=== PATIENT | male | born 1990 | race Caucasian/White ===

== ENCOUNTER 2018-11-16 03:18 | Emergency (ER) | payer SELFPAY ==
--- NOTE | 2018-11-16 03:42 | XRAY Report ---
Reason: chest pain Procedure Date: 11/16/2018 Accession Number: [id number] / [id number] Procedure: XR - Chest 1 View X-Ray CPT Code: 95605 FULL RESULT: EXAM: CHEST RADIOGRAPHY EXAM DATE: 11/16/2018 03:34 AM. CLINICAL HISTORY: Chest pain. COMPARISON: None. TECHNIQUE: 1 view. FINDINGS: Lungs/Pleura: No alveolar consolidation or pleural effusion seen. No pneumothorax. Mediastinum: Within exam limitations, the cardiomediastinal contour is normal. Other: None. IMPRESSION: 1. No acute abnormality seen in the chest. RADIA
--- NOTE | 2018-11-16 04:03 | ED Physician Documentation ---
PD HPI CHEST PAIN - Stated complaint Stated Complaint: TIGHT CHEST - Chief complaint Chief Complaint: Cardiac - History obtained from History obtained from: Patient, Family - History of Present Illness Timing - onset: Yesterday Timing - onset during: Rest Timing - duration: Days (2) Timing - details: Gradual onset, Still present, Waxing and waning Quality: Pressure, Tightness, Sharp Location: Substernal, Left chest Radiation: Back Worsened by: Inspiration, Palpation Associated symptoms: Shortness of air, Nausea Similar symptoms before: Has not had sx before Recently seen: Emergency Dept - Additional information Additional information: 28-year-old vegan male has developed substernal chest tightness and along with this abdominal pain. He reports that he has abdominal pain daily and along with this loose stool with blood every other day. He was seen in the emergency department at [facility] on the morning of 11/15/2018 and diagnosed with Crohn's disease. He was given Solu-Medrol 125 mg and he was instructed to start prednisone the following day. The patient had improvement in his pain for about 8 hours and he subsequently began to have worsening of his pain and is now brought back to the hospital by his mother with severe sharp abdominal pain and chest tightness. Patient reports that he has had daily abdominal pain for years and his bowel habits have been similar as well with diarrhea and blood in the stool every other day. He reports that he was diagnosed with Crohn's disease and has not h ad any diagnostic imaging or procedures done. Review of Systems Constitutional: reports: Chills. denies: Fever Eyes: denies: Decreased vision Ears: denies: Ear pain Nose: denies: Rhinorrhea / runny nose, Congestion Throat: denies: Sore throat Cardiac: reports: Chest pain / pressure. denies: Palpitations, Pedal edema, Calf pain Respiratory: reports: Dyspnea. denies: Cough, Wheezing GI: reports: Abdominal Pain, Nausea, Vomiting, Diarrhea, Bloody / black stool : denies: Dysuria, Frequency Skin: denies: Rash Musculoskeletal: denies: Neck pain, Back pain, Extremity pain Neurologic: denies: Generalized weakness, Focal weakness, Numbness PD PAST MEDICAL HISTORY - Past Medical History Past Medical History: Yes GI: Crohn's disease - Past Surgical History Past Surgical History: Yes - Allergies Allergies/Adverse Reactions: Allergies Allergy/AdvReac Type Severity Reaction Status Date / Time No Known Drug Allergies Allergy Verified 11/16/18 03:24 - Social History Does the pt smoke?: No Smoking Status: Never smoker Does the pt drink ETOH?: Yes Does the pt have substance abuse?: Yes Substance Use and Type: Marijuana - Immunizations Immunizations are current?: Yes - POLST Patient has POLST: No PD ED PE NORMAL - Vitals Vital signs reviewed: Yes (bradycardia) - General General: Alert and oriented X 3, Well developed/nourished, Other (patient with stoker mechanic tone and flat affect consistent with pain. ) - HEENT HEENT: Atraumatic, PERRL, EOMI - Neck Neck: Supple, no meningeal sign, No bony TTP - Cardiac Cardiac: No murmur, Other (bradicardic) - Respiratory Respiratory: No respiratory distress, Clear bilaterally - Abdomen Abdomen: Soft, Other (moderate central abdominal tenderness to palpation. ) - Back Back: No CVA TTP, No spinal TTP - Derm Derm: Normal color, Warm and dry, No rash - Extremities Extremities: No deformity, No edema - Neuro Neuro: Alert and oriented X 3, tip puncher 2-12 intact, No motor deficit, No sensory deficit, Normal speech Eye Opening: Spontaneous Motor: Obeys Commands Verbal: Oriented GCS Score: 15 - Psych Psych: Other (mood is painful affect is flat) Results - Vitals Vitals: Vital Signs - 24 hr 11/16/18 11/16/18 03:21 06:14 Temperature 36.9 C 37.0 C Heart Rate 52 L 53 L Respiratory 15 17 Rate Blood Pressure 121/77 116/83 H O2 Saturation 98 97 Oxygen O2 Source Room air - EKG (time done) 0325 Rate: Rate (enter#) (44) Rhythm: Sinus bradycardia Ischemia: Other (ST elevation consistent with henrietta-carditis. ) Compare to prior EKG: Old EKG unavailable Computer interpretation: Agree with computer - Labs Labs: Laboratory Tests 11/16/18 11/16/18 11/16/18 03:55 03:55 03:55 WBC 18.2 H RBC 4.29 L Hgb 14.0 Hct 41.7 L MCV 97.0 H MCH 32.6 H MCHC 33.6 RDW 11.8 L Plt Count 270 MPV 7.8 Neut # (Auto) 15.5 H Lymph # (Auto) 1.3 L Stevens # (Auto) 1.3 H Eos # (Auto) 0.0 Baso # (Auto) 0.0 Absolute Nucleated RBC 0.00 Nucleated RBC % 0.0 ESR Sodium 139 Potassium 3.9 Chloride 101 Carbon Dioxide 27 Anion Gap 11.0 BUN 8 Creatinine 0.6 Estimated GFR (MDRD) 163 Glucose 117 H Calcium 9.7 Total Bilirubin 0.6 AST 20 ALT 11 Alkaline Phosphatase 86 Troponin I < 0.04 C-Reactive Protein Total Protein 7.0 Albumin 4.2 Globulin 2.8 Albumin/Globulin Ratio 1.5 Lipase 29 11/16/18 11/16/18 03:55 03:55 WBC RBC Hgb Hct MCV MCH MCHC RDW Plt Count MPV Neut # (Auto) Lymph # (Auto) Stevens # (Auto) Eos # (Auto) Baso # (Auto) Absolute Nucleated RBC Nucleated RBC % ESR 1 Sodium Potassium Chloride Carbon Dioxide Anion Gap BUN Creatinine Estimated GFR (MDRD) Glucose Calcium Total Bilirubin AST ALT Alkaline Phosphatase Troponin I C-Reactive Protein < 1.0 Total Protein Albumin Globulin Albumin/Globulin Ratio Lipase - Rads (name of study) CT ab/pel with Radiology: Prelim report reviewed (Impression: 1. Appendix is not well seen. 2. possible wall thickening in the stomach. This may simply represent nondistention. Peptic disease also possible. 3 Trace amount of free fluid in the pelvis. This is nonspecific.), Discussed with rads (Case discussed with Dr. Florian Jacob film review: there does appear to be an end on view of the loop of bowel with thickened wall in the sagittal series. This may be consistent with Crohn's disease. The remainder of the patient's small intestine is nearly invisible on CT scan and is he has no fat.), EMP read indepedently, See rad repo rt chest Radiology: Prelim report reviewed (Impression: 1. No acute abnormality seen in the chest.) Procedures - Bedside sono Bedside sono by EMP: With use of bedside ultrasound the heart is imaged and there is no evidence of pericardial effusion. PD MEDICAL DECISION MAKING - ED course Complexity details: reviewed old records, reviewed results, re-evaluated patient, considered differential, d/w patient, d/w family ED course: 28-year-old male with acute abdominal pain and chest tightness appears to have pericarditis on electrocardiogram and has no pericardial effusion. He also has abdominal pain that has been chronic in nature and is severe today. He reports that earlier in the day after being given a dose of Solu-Medrol he had some relief of his symptoms and this wore off. He has persistence of pain now. He has been diagnosed with Crohn's disease at [facility] earlier today based on history. Here in the emergency department today we have additional imaging to support this diagnosis. The patient has follow-up with a primary in 2 days and he does have a number for customer service representative teller to follow-up with. Here in the emergency department the patient is initially given Toradol 30 mg intravenously which leads to nearly immediate resolution of his chest tightness. He has subsequently given Dilaudid for his abdominal pain and this improves his abdominal pain dramatically. He has been given a prescription for ranitidine and prednisone earlier today and he has a prescription for 40 mg of prednisone daily for a week. I encouraged the patient to begin this today and to take the ranitidine as well. I have encouraged the patient to follow-up with gastroenterology. Departure - Departure Disposition: 01 Home, Self Care Clinical Impression: Pericarditis Qualifiers: Pericarditis type: unspecified type Chronicity: acute Qualified Code(s): I30.9 - Acute pericarditis, unspecified Crohn's disease Qualifiers: Gastrointestinal tract location: small intestine Digestive disease complication type: unspecified complication Qualified Code(s): K50.019 - Crohn's disease of small intestine with unspecified complications Condition: Stable Instructions: Crohn Disease, ED Chest Pain Pericarditis Follow-Up: AMANDA ZEPEDA [Physician No Access] - Comments: Take the prednisone as prescribed this morning and follow up with the customer service representative teller. Forms: Activity restrictions Discharge Date/Time: 11/16/18 06:19
[2018-11-16 04:09] LABS: BASOPHILS % (AUTO) 0.2 %; LYMPHOCYTES # (AUTO) 1.3 10^3/uL (1.5-3.5); LYMPHOCYTES % (AUTO) 7.3 %; MEAN CORPUSCULAR HEMOGLOBIN 32.6 pg (27.0-31.0); MEAN CORPUSCULAR HGB CONC 33.6 g/dL (32.0-36.0); MEAN PLATELET VOLUME 7.8 fL (7.4-11.4); MONOCYTES # (AUTO) 1.3 10^3/uL (0.0-1.0); NEUTROPHILS # (AUTO) 15.5 10^3/uL (1.5-6.6); NEUTROPHILS % (AUTO) 85.5 %; PLT - PLATELET COUNT 270 10^3/uL (130-450); RED BLOOD COUNT 4.29 10^6/uL (4.70-6.10); RED CELL DISTRIBUTION WIDTH 11.8 % (12.0-15.0); WHITE BLOOD COUNT 18.2 x10^3/uL (4.8-10.8)
[2018-11-16] MEDS ORDERED: KETOROLAC 30 MG/ML VIAL IVP STA (04:14)
[2018-11-16 04:23] LABS: ALBUMIN 4.2 g/dL (3.2-5.5); ALBUMIN/GLOBULIN RATIO 1.5 (1.0-2.2); BILIRUBIN,TOTAL 0.6 mg/dL (0.2-1.0); CALCIUM 9.7 mg/dL (8.5-10.3); CREATININE 0.6 mg/dL (0.6-1.2)
[2018-11-16] MEDS ORDERED: methylPREDNISolone SUCCINATE 125 MG/2 ML VIAL IVP STA (04:41)
[2018-11-16] MEDS ORDERED: IOVERSOL 320 100 ML VIAL IVP ONE ×2 (04:48→05:14)
[2018-11-16] MEDS ORDERED: HYDROmorphone 1 MG/ML CARPUJECT IVP STA (05:12)
[2018-11-16] MEDS ORDERED: ONDANSETRON 4 MG/2 ML VIAL IVP STA (05:12)
--- NOTE | 2018-11-16 05:34 | CT Report ---
Reason: R abdominal pain Procedure Date: 11/16/2018 Accession Number: [id number] / [id number] Procedure: CT - Abdomen/Pelvis W CPT Code: FULL RESULT: EXAM: CT ABDOMEN AND PELVIS EXAM DATE: 11/16/2018 05:15 AM. CLINICAL HISTORY: R abdominal pain. COMPARISONS: None. TECHNIQUE: Routine helical CT imaging was performed through the abdomen and pelvis. IV contrast: [id number] 100ML. Enteric contrast: No. Reconstructions: Coronal and sagittal. In accordance with CT protocol optimization, one or more of the following dose reduction techniques were utilized for this exam: automated exposure control, adjustment of mA and/or KV based on patient size, or use of iterative reconstructive technique. FINDINGS: Lung Bases: Unremarkable. Liver: No focal abnormality seen. Gallbladder/Bile Ducts: Unremarkable. Spleen: Normal. Pancreas: Normal. Adrenal Glands: Normal. Kidneys: Normal. No masses or hydronephrosis. Peritoneal Cavity/Bowel: Possible gastric wall thickening. No bowel obstruction seen. No diverticulitis. Trace amount of free fluid in the pelvis. No free air. No lymphadenopathy. Appendix is not well seen. Pelvic Organs: Normal. The bladder and visualized pelvic organs are within normal limits. Vasculature: No aneurysms or other significant abnormality. Bones: No significant abnormality. Other: None. IMPRESSION: 1. Appendix is not well seen. 2. Possible wall thickening in the stomach. This may simply represent nondistention. Peptic disease also possible. 3. Trace amount of free fluid in the pelvis. This is nonspecific. RADIA
[2018-11-16 06:15] VITALS: BP 116/83
== END 2018-11-16 06:19 | disposition home or self-care (01) ==
LOC: ED 03:18
DX: I30.9 Acute pericarditis, unspecified (principal); K50.90 Crohn's disease, unspecified, without complications
CPT/HCPCS: 36415; 71045; 74177; 80053; 83690; 84484; 85025; 85651; 86140; 93005; 96374; 96375; 99283; 99284; J1170; Q9967